=== PATIENT | female | born 1995 | race Two or more races ===

== ENCOUNTER 2016-06-14 02:23 | Emergency (ER) | payer OTHER ==
[~2016-06-14] VITALS: Ht 162.6 cm; Wt 84.4 kg
[2016-06-14 02:30] VITALS: BP 135/60
== END 2016-06-14 04:24 | disposition home or self-care (01) ==
LOC: ER 02:24
DX: Z00.8 Encounter for other general examination (principal); Z90.49 Acquired absence of other specified parts of digestive tract
CPT/HCPCS: 99281; A4606; Z7610; Z7502

== ENCOUNTER 2016-12-11 21:30 | Emergency (ER) | payer OTHER ==
[~2016-12-11] VITALS: Ht 162.6 cm; Wt 81.6 kg
--- NOTE | 2016-12-11 21:40 | NUR ---
TO BED 8 A 21 YO FEMALE BB SELF; MID LOWER ABD PAIN 3/10, PRESSURE LIKE X 2 WKS, WITH N/V. VSS. NAD NOTED. AFEBRILE. GOWNED. COMFORT MEASURES RENDERED. AWAITING FOR ER MD TENORIO.
[2016-12-11 22:10] LABS: APPEARANCE,URINE SL CLOUDY (CLEAR); BILIRUBIN,URINE NEGATIVE (NEGATIVE); BLOOD, URINE 2+ Ery/uL (NEGATIVE); COLOR,URINE YELLOW (YELLOW); KETONES,URINE TRACE (NEGATIVE); LEUKOCYTE ESTERASE ,URINE TRACE (NEGATIVE); NITRITE, URINE NEGATIVE (NEGATIVE); PROTEIN,URINE NEGATIVE (NEGATIVE); UGLUCOSE NEGATIVE (NEGATIVE); UROBILINOGEN,URINE 0.2 EU/dL (0.2)
[2016-12-11 22:19] LABS: PREGNANCY TEST URINE QUAL NEGATIVE (NEGATIVE)
[2016-12-11 22:23] LABS: BACTERIA,URINE Few /HPF (None Seen); RBC,URINE 0-2 /HPF (0-2); SQUAMOUS EPITHELIAL CELL,UR Moderate /HPF (None Seen)
--- NOTE | 2016-12-11 23:04 | NUR ---
Patient discharged to home in stable condition. Written and verbal after care instructions given. Patient verbalizes understanding of instruction.
[2016-12-11 23:05] VITALS: BP 121/77
== END 2016-12-11 23:06 | disposition home or self-care (01) ==
LOC: ER 21:32
DX: R10.84 Generalized abdominal pain (principal); G89.29 Other chronic pain; Z90.49 Acquired absence of other specified parts of digestive tract
CPT/HCPCS: 81001; 84703; 99283; A4606; Z7610; 81000-TC

== ENCOUNTER 2017-01-01 11:25 | Emergency (ER) | payer OTHER ==
[~2017-01-01] VITALS: Ht 162.6 cm; Wt 85.7 kg
[2017-01-01 11:38] VITALS: BP 123/79
== END 2017-01-01 13:39 | disposition home or self-care (01) ==
LOC: ER 11:27
DX: B34.9 Viral infection, unspecified (principal); F41.9 Anxiety disorder, unspecified; Z90.49 Acquired absence of other specified parts of digestive tract
CPT/HCPCS: A4606; Q0162; Z7610